=== PATIENT | female | born 1975 | race Caucasian/White ===

== ENCOUNTER 2022-10-15 00:53 | Day surgery (SDC) | payer OTHER, SELFPAY ==
[2022-10-07 12:10] VITALS: BMI 27.4
--- NOTE | 2022-10-07 12:18 | PC.NURSE ---
Report to the Outpatient Waiting Room, entrance under the green pavilion located off [facility], at time 0600 on date 10/15/22. Planned Procedure Time: 0730. Time changes happen often and if your time is changed the preop area will call you the afternoon before. - You and your visitor will be asked to self-screen and do not enter if you have any COVID symptoms. - Only one visitor is requested with a max of two and NO children visitors are allowed at this time. - The patient visitor may be requested to leave or wait in car when not with patient due to distancing restrictions. - A mask is optional within the hospital. Patients may have clear liquids (water, carbonated beverages, clear teas, apple juice) until 3 hours prior to surgery with a maximum of 20 ounces. - No food from midnight until time of surgery Take the following medications with a SIP of water the morning of surgery: NONE Medications to discontinue per physician: VITAMINS/SUPPLEMENTS Date to take last dose: 10/11/22 Please no make-up, nail [place], hairspray, perfume, deodorant, or body powder the day of surgery. No jewelry (including any body piercings) or valuables the day of surgery, leave them at home. Please take a shower or bath the night before, or the morning of, surgery with an antibacterial soap. Wear comfortable, loose fitting clothing. - Jewelry must be removed prior to entering the operating room. Rings and piercings that are not removed may be cut off. - The hospital will not accept responsibility for valuables. - Please leave all valuables, including medications, at home the day of surgery. If you are going home after surgery, a licensed driver/refuse collector must drive you home. - NO public transportation without another adult if you receive anesthesia. - We recommend that an adult stay with you for 24 hours following discharge. - We also recommend that you do not drive, make important decision, drink alcoholic beverages, or take any drugs that were not prescribed by your health care provider for at least 24 hours after your discharge time. Follow any additional instructions given to you from your surgeon. If you or anyone in your household have experienced Covid symptoms in the past week, please notify your surgeon or the nurse liaison at the phone number below for possible testing. Telephone instructions given to PT - RAE LACEY and asked if any additional questions and then verbalized understanding. Patient advised to call surgeon office or pre surgery nurse liaison [phone] if any additional questions.
[2022-10-15] VITALS (8 sets, daily range): BP systolic 82–115; BP diastolic 47–75; PULSE 40–56; RESP 14–16; TEMP 36.3; O2SAT 95–100
[2022-10-15] MEDS: KETOROLAC 15 MG/ML VIAL (*BKC) IV PUSH (11:24)
[2022-10-15] MEDS: ACETAMINOPHEN 500 MG TABLET 1000 MG PO (11:25)
[2022-10-15] MEDS: LACTATED RINGERS 1,000 ML 30 ML IV CONT ×2 (11:40→13:00)
--- NOTE | 2022-10-15 11:50 | P.PNAN_ITS ---
Anes - Initial Pre Proc Eval Procedure: Operation Date: 10/15/22 12:30 Proposed Procedures p Hysteroscopy with Removal of Intrauterine Device - Shayy Prieto MD Date/Time: 10/15/22 11:50 Surgeon: Shayy Prieto MD Pre Op Diagnosis: malposition of iud Patient Data Age: 46 Gender: F Height: 1.63 m Weight: 73.1 kg Last Vital Signs Temp 97.3 F L 10/15/22 11:34 Pulse 46 L 10/15/22 11:34 Resp 16 10/15/22 11:34 BP 107/75 10/15/22 11:34 Pulse Ox 100 10/15/22 11:34 O2 Del Method Room Air 10/15/22 11:34 Allergies Allergy/AdvReac Type Severity Reaction Status Date / Time adhesive tape AdvReac Blister Verified 10/15/22 11:33 TOPICALS AdvReac Blister Uncoded 10/15/22 11:33 Home Medications Medication Instructions Recorded Confirmed Type Lactobacillus acidophilus 10 10,000 mmu cells PO DAILY 10/07/22 10/15/22 History billion cell capsule (Probiotic) biotin 800 mcg tablet 800 mcg PO DAILY 10/07/22 10/15/22 History calcium carbonate 500 mg calcium 500 mg PO DAILY 10/07/22 10/15/22 History (1,250 mg) tablet inulin-sorbitol 2 gram chewable 1 tablet PO DAILY 10/07/22 10/15/22 History tablet xrnewhfg-[id number]-vttw 45 mg-folic 1 cap PO DAILY 10/07/22 10/15/22 History acid 800 mcg-vit K 120 mcg capsule (Bariatric Multivitamins) Patient hx anesthesia problems: none and other (wakes up verbvally mean) Family hx anesthesia problems: none Results Review: All pre-operative results and documents have been reviewed as part of the pre- operative evaluation. PMFSH Social History Social History Smoking packs per day: 1 Smoking cigarettes per day: 20.0 Years smoked: 10 Smoking pack-years: 10.00 Smoking status: Current some day smoker Tobacco type: cigarettes Additional smoking assessment comments: QUIT DAILY SMOKING IN 2020 Alcohol intake: current Alcohol use details: RARELY Substance use: never Substance use type: does not use Living arrangements: with family Additional living arrangements comments: DAUGHTER Spiritual care concerns: No Anes - Eval Final PreProcedure Day of Procedure 10/15/22 11:50 Patient weight: normal Heart: regular rate and rhythm Lungs: clear to auscultation Airway: Mallampati scale class II Neurological: alert and oriented Last oral intake: >/= 8 hours ASA classification: II Emergent: no Anesthetic plan: proceed Anesthesia type and monitoring: general GIVS and standard monitoring Results Review: All pre-operative results and documents have been reviewed as part of the pre- operative evaluation. Informed Consent: The patient's anesthetic plan and its attendant risks and benefits were discussed with the patient/family/POA. Questions were solicited and answers provided to the satisfaction of the patient/family/POA.
--- NOTE | 2022-10-15 11:54 | WPDHPUPDATE1 ---
History and Physical Update Update Date/Time: 10/15/22 11:54 History and Physical has been reviewed, including an updated exam of the patient. There are NO changes in the patient's condition. Risks, benefits, and alternatives have been discussed and questions answered. Patient agrees to proceed with procedure.
[2022-10-15] MEDS: LIDOCAINE HCL 1% PF 30 ML VIAL 10 ML INFILTRATE (12:25)
--- NOTE | 2022-10-15 12:44 | W.PM.PROC2 ---
Procedure Note - Detailed Date of Procedure 10/15/22 Pre-op Diagnosis malposition of iud Post-op Diagnosis Same Procedure Performed Hysteroscopic removal of IUD/foreign body Surgeon Shayy Prieto MD Anesthesia MAC Findings normal vulva vagina and cervix, normal intrauterine cavity. Description of Procedure This patient was taken to the operating room. She was prepped and draped in the dorsal lithotomy position after induction of MAC anesthesia. The speculum was placed the vagina. The cervix was grasped with a tenacula. It was injected at 3 and 9:00 a.m. with lidocaine. The hysteroscope was inserted. The IUD string was placed in an upward position towards the fundus. The hysteroscope was removed. The IUD was grasped with a polyp forceps and removed. Patient tolerated the procedure well. The speculum was removed. The tenaculum was removed. the patient was taken to recovery room in stable condition. Estimated Blood Loss 3
--- NOTE | 2022-10-15 13:20 | SUR.PHASEII ---
1250- Call to Dr. Buckley for patient's bradycardia and BP. Patient noted to be bradycardic in pre-op with HR of 46. Patient's HR in high 30's-40's, patient awakening, answering questions, and asymptomatic at this time. IV fluids infusing wide open. 1302- Second call to Dr. Buckley concerning patient's bradycardia with HR in high 30's to 40's. Patient's BP 80's over 50's. Second bag of LR started, infusing wide open. Per Dr. Buckley no additional orders at this time. 1320- Dr. Buckley to bedside to assess patient's status- HR in high 30's-40's, patient awakening, answering questions, and remains asymptomatic at this time. IV fluids infusing wide open and Dr. Buckley administered 10MG ephedrine IVP.
== END 2022-10-15 14:48 | disposition home or self-care (01) ==
PROVIDERS: Visit Provider Obstetrics & Gynecology
PROC: 0U5B8ZZ Destruction of Endometrium, Via Natural or Artificial Opening Endoscopic (ICD-10-PCS; CPT 58563; principal; 2022-10-15 12:30)
DX: T83.32XA Displacement of intrauterine contraceptive device, initial encounter (principal); Y84.8 Other medical procedures as the cause of abnormal reaction of the patient, or of later complication, without mention of misadventure at the time of the procedure; F17.210 Nicotine dependence, cigarettes, uncomplicated
CPT/HCPCS: 58562; A9270; J1885; J2250; J2405; J2704; J3010; J7030; J7120